=== PATIENT | male | born 1990 | race Two or more races ===

== ENCOUNTER 2016-05-25 14:33 | Emergency (ER) | payer SELFPAY | END 2016-05-25 15:00 | disposition left against medical advice (07) | LOC: ER 14:33 | DX: Z53.21 Procedure and treatment not carried out due to patient leaving prior to being seen by health care provider (principal) ==

== ENCOUNTER 2016-06-29 12:29 | Emergency (ER) | payer SELFPAY ==
--- NOTE | 2016-06-29 13:15 | ER Document Report ---
ED Medical Screen (RME) - General Stated Complaint: TOOTH PAIN Notes: 25 yo male c/o left lower dental pain x 2 days. pt has hx/o broken jaw several months ago. TRAVEL OUTSIDE OF THE [place] IN LAST 30 DAYS: No - Related Data Allergies/Adverse Reactions: No Known Allergies Allergy (Verified 04/12/16 11:22) Past Medical History Pulmonary Medical History: Reports: Hx Asthma Musculoskeltal Medical History: Reports Hx Musculoskeletal Trauma Traumatic Medical History: Reports: Hx Fractures - Jaw mandible, Hx Pneumothorax - x4 Past Surgical History: Reports: Hx Oral Surgery - Immunizations Hx Diphtheria, Pertussis, Tetanus Vaccination: Yes
== END 2016-06-29 15:45 | disposition left against medical advice (07) ==
LOC: ER 12:29
DX: K08.89 Other specified disorders of teeth and supporting structures (principal); J45.909 Unspecified asthma, uncomplicated; Z53.20 Procedure and treatment not carried out because of patient's decision for unspecified reasons
CPT/HCPCS: 99281

== ENCOUNTER 2018-12-08 19:24 | Emergency (ER) | payer SELFPAY ==
--- NOTE | 2018-12-08 20:05 | ER Document Report ---
ED Medical Screen (RME) - General Chief Complaint: Shortness Of Breath Stated Complaint: SHORTNESS OF BREATH Time Seen by Provider: 12/08/18 19:53 Notes: 27-year-old male with history of a left lung partial lobectomy secondary to a spontaneous pneumothorax presents to the emergency department with chief complaint of shortness of breath x1 week with acute worsening shortness of breath and burning pain with respiration that started today. Patient is concerned because of his history and is in acute distress. Denies any fevers or chills, denies any chest pain, denies any nausea or vomiting. States that he has a cough that started "about 10 or 15 minutes ago with some phlegm". No other complaints TRAVEL OUTSIDE OF THE [place] IN LAST 30 DAYS: No - Related Data Allergies/Adverse Reactions: No Known Allergies Allergy (Verified 06/29/16 13:14) Past Medical History - Social History Frequency of alcohol use: None Drug Abuse: Marijuana Pulmonary Medical History: Reports: Hx Asthma Renal/ Medical History: Denies: Hx Peritoneal Dialysis Musculoskeltal Medical History: Reports Hx Musculoskeletal Trauma Traumatic Medical History: Reports: Hx Fractures - Jaw mandible, Hx Pneumothorax - x4 Past Surgical History: Reports: Hx Oral Surgery - Immunizations Hx Diphtheria, Pertussis, Tetanus Vaccination: Yes Physical Exam - Vital signs Vitals: Temp Pulse Resp BP Pulse Ox 98.6 F 98 20 160/80 H 100 12/08/18 19:33 12/08/18 19:33 12/08/18 19:33 12/08/18 19:33 12/08/18 19:33 - Notes Notes: PHYSICAL EXAMINATION: Reviewed vital signs and charting by RN GENERAL: Alert, interacts well. Mild distress. HEAD: Normocephalic, atraumatic. EYES: Pupils equal and round. Extraocular movements intact. ENT: Oral mucosa moist, tongue midline. NECK: Full range of motion. Trachea midline. LUNGS: Clear to auscultation bilaterally, no wheezes, rales, or rhonchi. No respiratory distress. HEART: Regular rate and rhythm. No murmur ABDOMEN: soft, non-tender. No distention. Bowel sounds present EXTREMITIES: Moves all 4 extremities spontaneously. No edema, No cyanosis. PSYCH: Normal affect, normal mood. SKIN: Warm, dry, normal turgor. No rashes or lesions noted. Course - Vital Signs Vital signs: Temp Pulse Resp BP Pulse Ox 98.6 F 98 20 160/80 H 100 12/08/18 19:33 12/08/18 19:33 12/08/18 19:33 12/08/18 19:33 12/08/18 19:33
--- NOTE | 2018-12-08 20:08 | RADIOLOGY REPORT (SQ) ---
EXAM DESCRIPTION: CHEST 2 VIEWS COMPLETED DATE/TIME: 12/08/2018 7:45 pm REASON FOR STUDY: chest pain COMPARISON: None. EXAM PARAMETERS: NUMBER OF VIEWS: two views TECHNIQUE: Digital Frontal and Lateral radiographic views of the chest acquired. RADIATION DOSE: NA LIMITATIONS: none FINDINGS: LUNGS AND PLEURA: No opacities, masses or pneumothorax. No pleural effusion. MEDIASTINUM AND HILAR STRUCTURES: No masses or contour abnormalities. HEART AND VASCULAR STRUCTURES: Heart normal size. No evidence for failure. BONES: No acute findings. HARDWARE: None in the chest. OTHER: No other significant finding. IMPRESSION: No acute abnormality of the lungs. No pneumothorax. TECHNICAL DOCUMENTATION: JOB ID: [id number] [employer]- All Rights Reserved Reading location - IP/workstation name: [email or web address]
[2018-12-08] MEDS ORDERED: NORMAL SALINE 1000 ML 1,000 ML IV ONE (20:28)
--- NOTE | 2018-12-08 20:30 | ER Document Report ---
ED General - General Chief Complaint: Shortness Of Breath Stated Complaint: SHORTNESS OF BREATH Time Seen by Provider: 12/08/18 19:53 Notes: Patient is a 27-year-old male that comes emergency department for chief complaint of shortness of breath, pain along the center of his chest and epigastric area radiating over to the left side. He does have a history of spontaneous pneumothorax x3 in 2015, states that the "took a small piece out of the left lung to keep it from coming back". He does smoke cigarettes and marijuana. He states he also feels intermittently lightheaded. He states this started suddenly just prior to arrival, however family member at bedside states he has been complaining of this intermittently for a week. Patient does not disagree. Patient denies injury, fever, nausea/vomiting. Patient denies past medical history otherwise. TRAVEL OUTSIDE OF THE [place] IN LAST 30 DAYS: No - Related Data Allergies/Adverse Reactions: No Known Allergies Allergy (Verified 06/29/16 13:14) Past Medical History - General Information source: Patient - Social History Smoking Status: Current Every Day Smoker Smoking Education Provided: Yes - <3 min Frequency of alcohol use: None Drug Abuse: Marijuana Family History: CAD, DM, Hyperlipidemia, Hypertension Patient has suicidal ideation: No Patient has homicidal ideation: No Pulmonary Medical History: Reports: Hx Asthma Renal/ Medical History: Denies: Hx Peritoneal Dialysis Musculoskeletal Medical History: Reports Hx Musculoskeletal Trauma Traumatic Medical History: Reports: Hx Fractures - Jaw mandible, Hx Pneumothorax - x4 Past Surgical History: Reports: Hx Oral Surgery - Immunizations Hx Diphtheria, Pertussis, Tetanus Vaccination: Yes Review of Systems - Review of Systems Constitutional: No symptoms reported EENT: No symptoms reported Cardiovascular: See HPI Respiratory: See HPI Gastrointestinal: No symptoms reported Genitourinary: No symptoms reported Male Genitourinary: No symptoms reported Musculoskeletal: No symptoms reported Skin: No symptoms reported Hematologic/Lymphatic: No symptoms reported Neurological/Psychological: No symptoms reported Physical Exam - Vital signs Vitals: Temp Pulse Resp BP Pulse Ox 98.6 F 98 20 160/80 H 100 12/08/18 19:33 12/08/18 19:33 12/08/18 19:33 12/08/18 19:33 12/08/18 19:33 - Notes Notes: GENERAL: Alert and interactive but restless and anxious HEAD: Normocephalic, atraumatic. EYES: Pupils slightly dilated, round, and reactive to light. Extraocular movements intact. ENT: Oral mucosa moist, tongue midline. Oropharynx unremarkable. Airway patent. LUNGS: Clear to auscultation bilaterally, no wheezes, rales, or rhonchi. No respiratory distress. HEART: Regular rate and rhythm. No murmur ABDOMEN: Soft, non-tender. Non-distended. Bowel sounds present in all 4 quadrants. GENITOURINARY: Deferred EXTREMITIES: Moves all 4 extremities spontaneously. No edema, normal radial and dorsalis pedis pulses bilaterally. No cyanosis. BACK: no cervical, thoracic, lumbar midline tenderness. No saddle anesthesia, normal distal neurovascular exam. Moves all extremities in full range of motion. NEUROLOGICAL: Alert and oriented x3. Normal speech. Cranial nerves II through XII grossly intact. PSYCH: Anxious, talks rapidly SKIN: Warm, dry, normal turgor. No rashes or lesions noted. Course - Re-evaluation Re-evalutation: Chest x-ray is normal without evidence of pneumothorax or acute abnormality. On my initial evaluation patient is anxious, talks rapidly, however he is in no respiratory distress, his lungs are clear, he is not hypoxic, his examination is otherwise unremarkable. Because of patient's reported symptoms including the epigastric, left upper quadrant, and left side, general work-up was performed including CBC, chemistry, lipase, troponin, EKG. These were all unremarkable. I reevaluated patient again after having initially discussed his chest x-ray. Now patient is calm. He states his symptoms are completely gone. He tells me he believes he had a panic attack. He states he was in an argument with his significant other just before his symptoms started. He is apologetic, however I reassured him that it was important to make sure he was okay based on his medical history of pneumothorax. Based on his lack of current symptoms, negative work-up, and well appearance I have very low suspicion of acute intrathoracic or intra-abdominal etiology. Discussed panic attacks, follow-up, and return precautions in detail. Given a dose of Ativan here to go home. - Vital Signs Vital signs: Temp Pulse Resp BP Pulse Ox 98.6 F 98 16 108/68 98 12/08/18 19:33 12/08/18 19:33 12/08/18 22:00 12/08/18 21:00 12/08/18 22:00 - Laboratory Result Diagrams: 12/08/18 20:11 12/08/18 20:11 Laboratory results interpreted by me: 12/08/18 20:11 Lymphocytes % 45.1 H - Diagnostic Test Radiology results interpreted by me: EKG shows sinus rhythm at a rate of 60, QTC of 388, OR interval 164. No T wave inversions or ST segment changes in consecutive leads, there is a T wave inversion in V2 but this is not significantly changed from prior Discharge - Discharge Clinical Impression: Shortness of breath, Anxiety Condition: Stable Disposition: HOME, SELF-CARE Additional Instructions: Your evaluation and work-up are reassuring. This is most likely symptoms from a panic attack that you experienced tonight. Follow-up with primary care for additional evaluation and management. Stop smoking. Return for any concerning symptoms, see additional details below. The cause of panic attacks is unknown. Symptoms can include chest pain, shortness of breath, palpitations, sweats, and a sense of smothering or impending doom. In time, the panic attacks can lead to generalized anxiety and phobias. Because the symptoms can mimic heart attack, pulmonary embolism, and other serious diseases, the physician has evaluated you for these conditions. There is no evidence of a serious problem. An acute panic attack usually goes away by itself without treatment. A severe attack can be treated with medicine to calm you. Long-term, antidepressant medicines may help prevent attacks. Counselling can also be very beneficial in dealing with panic attacks. Panic attacks are less likely if you are getting regular exercise, proper diet, and plenty of sleep. It's normal for panic attacks to cause many frightening symptoms. However, you should return if your symptoms change significantly or if you are worsening. Forms: Return to Work
[2018-12-08 20:54] LABS: ABSOLUTE EOSINOPHILS # (AUTO) 0.1 10^3/uL (0.0-0.6); ABSOLUTE LYMPHOCYTES (AUTO) 2.7 10^3/uL (0.5-4.7); ABSOLUTE MONOCYTES (AUTO) 0.6 10^3/uL (0.1-1.4); ABSOLUTE NEUT (AUTO) 2.6 10^3/uL (1.7-8.2); BASOPHILS % (AUTO) 0.6 % (0-2); EOSINOPHILS % (AUTO) 0.9 % (0-6); HEMATOCRIT 40.6 % (37.9-51.0); HEMOGLOBIN 13.8 g/dL (13.5-17.0); LYMPHOCYTES % (AUTO) 45.1 % (13-45); MEAN CORPUSCULAR HEMOGLOBIN 30.5 pg (27.0-33.4); MEAN CORPUSCULAR VOLUME 90 fl (80-97); MONOCYTES % (AUTO) 9.5 % (3-13); PLATELET COUNT 325 10^3/uL (150-450); RED BLOOD COUNT 4.52 10^6/uL (4.35-5.55); RED CELL DISTRIBUTION WIDTH 13.1 % (11.5-14.0); SEGMENTED NEUTROPHILS % (AUTO) 43.9 % (42-78); TOTAL CELLS COUNTED % (AUTO) 100 %
[2018-12-08 21:02] LABS: ALANINE AMINOTRANSFERASE 22 U/L (21-72); ALBUMIN 4.7 g/dL (3.5-5.0); ALKALINE PHOSPHATASE 58 U/L (38-126); ANION GAP 10 (5-19); ASPARTATE AMINO TRANSFERASE 31 U/L (17-59); BILIRUBIN,DIRECT 0.2 mg/dL (0.0-0.4); BILIRUBIN,TOTAL 0.4 mg/dL (0.2-1.3); BLOOD UREA NITROGEN 12 mg/dL (7-20); CARBON DIOXIDE 26 mmol/L (22-30); CHLORIDE 105 mmol/L (98-107); GLUCOSE 86 mg/dL (75-110); LIPASE 101.7 U/L (23-300); POTASSIUM 3.8 mmol/L (3.6-5.0); SODIUM 141.3 mmol/L (137-145); TOTAL PROTEIN 7.4 g/dL (6.3-8.2)
[2018-12-08 21:12] VITALS: BP 108/68
[2018-12-08] MEDS ORDERED: LORAZEPAM 1 MG TABLET PO ONE (21:54)
--- NOTE | 2018-12-08 21:59 | EKG REPORT ---
SEVERITY:- BORDERLINE ECG - SINUS RHYTHM BORDERLINE T ABNORMALITIES, ANT-LAT LEADS : Confirmed by: Jose Triplett MD 08-Dec-2018 21:59:03
== END 2018-12-08 22:08 | disposition home or self-care (01) ==
LOC: ER 19:24
DX: R06.02 Shortness of breath (principal); F41.9 Anxiety disorder, unspecified; F17.210 Nicotine dependence, cigarettes, uncomplicated
CPT/HCPCS: 93005; 99285; 96360; 36415; 83690; 85025; 80053; 84484; 71046; 93010; J7030